=== PATIENT | female | born 1990 | race Caucasian/White ===

== ENCOUNTER → 2019-04-11 | Outpatient (CLI) | payer OTHER, MEDICAID ==
[~2019-04-11] MED LIST: ANUS2.5C2 EXT; DOCU5LIQ PO; IBUP600T26 PO; IBUP80TA PO; MAPA500T17 PO; MAPA500T2 PO; MILK10SU PO; PRENTAB9 PO
--- NOTE | 2019-04-11 11:12 | REP ---
OB ULTRASOUND: Real-time sonographic evaluation of the gravid uterus is performed. There is a single living intrauterine gestation. Estimated gestational age 16 weeks 4 days based on LMP, EDC 09/22/2019. Today's measurements indicate appropriate growth. BPD 33 mm = 16 weeks 3 days, 41st percentile HC 126 mm = 16 weeks 2 days 40th percentile AC 106 mm = 16 weeks 3 days, 47th percentile FL 21 mm = 16 weeks 2 days, 30th percentile HC/AC ratio 1.19 within normal range. Estimated weight 154 grams, 35th percentile. Cervix is closed and measures 4.2 cm in length. heart rate 150 beats per minute. SEEN/GROSSLY UNREMARKABLE Lateral ventricles Yes Posterior fossa No Upper lip No Four-chamber heart Yes LVOT No RVOT Yes Stomach Yes Cord insertion Yes Three vessel cord Yes Kidneys Yes Bladder Yes Spine No position: Vertex. Placenta: Anterior and grade 0 with no previa or abruption. Amniotic fluid within normal limits. Recommend followup anatomical screening ultrasound examination at 20 weeks gestational age. Electronically Signed by Issa Carr MD 04/13/2019 10:44 P
== END ==
LOC: M RAD 08:36
PROVIDERS: ATTEND Advanced Practice Midwife
DX: Z36.9 Encounter for antenatal screening, unspecified (principal); Z3A.16 16 weeks gestation of pregnancy

== ENCOUNTER → 2019-04-25 | Outpatient (CLI) | payer OTHER, MEDICAID ==
[2019-04-25 17:09] LABS: BASO % 0.4 % (0.0-1.0); EOS # 0.1 10^3/uL (0.0-0.5); EOS % 1.2 % (0.0-3.0); HEMATOCRIT 34.5 % (36.0-47.0); HEMOGLOBIN 11.6 g/dl (12.0-15.5); LYMPH # 2.3 10^3/uL (1.5-5.0); LYMPH % 20.1 % (24.0-44.0); MEAN CORPUSCULAR HEMOGLOBIN 31.3 pg (27.0-33.0); MEAN CORPUSCULAR HGB CONC 33.6 g/dl (32.0-36.5); MONO # 0.4 10^3/uL (0.0-0.8); MONO % 3.7 % (0.0-5.0); NEUTROPHILS # 8.3 10^3/uL (1.5-8.5); NEUTROPHILS % 73.5 % (36.0-66.0); PLATELET COUNT, AUTOMATED 223 10^3/uL (150-450); RED BLOOD COUNT 3.71 10^6/uL (4.00-5.40); WHITE BLOOD COUNT 11.3 10^3/uL (4.0-10.0)
[2019-04-25 17:55] LABS: HEPATITIS C VIRUS ABY INDEX 0.1 INDEX (<0.8); HIV 1&2 SCREEN CENTAUR NEGATIVE (NEGATIVE); RUBELLA IgG QUALITATIVE IMMUNE (IMMUNE)
[2019-04-25 18:10] LABS: CHLAMYDIA DNA AMPLIFICATION NEGATIVE (NEGATIVE); GC DNA AMPLIFICATION NEGATIVE (NEGATIVE)
== END ==
LOC: M WUC 13:58
PROVIDERS: ATTEND Advanced Practice Midwife
DX: Z34.81 Encounter for supervision of other normal pregnancy, first trimester (principal); Z36.89 Encounter for other specified antenatal screening

== ENCOUNTER → 2019-05-15 | Outpatient (CLI) | payer MEDICAID, OTHER ==
--- NOTE | 2019-05-15 14:27 | REP ---
Section ultrasound for anatomy: There is a single intrauterine gestation. position is variable. The heart rate is 153 beats per minute. The placenta is anterior. There is no placenta previa or abruptio. The placenta is grade zero. Subjectively the amniotic fluid volume is normal. The cervix measures 5.4 cm length. Gestational age by the ultrasound today is 21 weeks 1 day/ZACKERY 09/24/2019. Gestational age by the first ultrasound is 21 weeks 2 days/ZACKERY 09/23/2019. Gestational age by LMP is 21 weeks 3 days/ZACKERY 09/22/2019. weight is 417 grams/0 pounds, 14 ounces. This is the 44th percentile for 21 weeks 3 days. The following anatomic structures are identified and are unremarkable: Cranium, choroid plexus, cavum septum pellucidum, cerebellum, facial profile, upper lip, lungs, four-chamber heart, cardiac right and left ventricular outflow tracts, diaphragm, stomach, cord insertion, three-vessel cord, kidneys, bladder, spine and upper lower extremities. No anomalies are identified. Electronically Signed by Issa Junior MD 05/15/2019 02:18 P
== END ==
LOC: M RAD 08:46
PROVIDERS: ATTEND Advanced Practice Midwife
DX: Z34.82 Encounter for supervision of other normal pregnancy, second trimester (principal); Z36.89 Encounter for other specified antenatal screening; Z3A.21 21 weeks gestation of pregnancy

== ENCOUNTER → 2019-06-25 | Outpatient (CLI) | payer OTHER ==
[2019-06-25 11:17] LABS: HEMATOCRIT 33.5 % (36.0-47.0); HEMOGLOBIN 10.9 g/dl (12.0-15.5); MEAN CORPUSCULAR HEMOGLOBIN 30.4 pg (27.0-33.0); MEAN CORPUSCULAR HGB CONC 32.5 g/dl (32.0-36.5); MEAN CORPUSCULAR VOLUME 93.3 fl (80.0-96.0); PLATELET COUNT, AUTOMATED 217 10^3/uL (150-450); RED BLOOD COUNT 3.59 10^6/uL (4.00-5.40); WHITE BLOOD COUNT 12.4 10^3/uL (4.0-10.0)
== END ==
LOC: M LAB 08:53
PROVIDERS: ATTEND Advanced Practice Midwife
DX: O26.892 Other specified pregnancy related conditions, second trimester (principal)

== ENCOUNTER → 2019-07-11 | Outpatient (CLI) | payer OTHER | LOC: M LAB 08:04 | PROVIDERS: ATTEND Advanced Practice Midwife | DX: R73.01 Impaired fasting glucose (principal) ==

== ENCOUNTER → 2019-08-15 | Outpatient (CLI) | payer OTHER ==
--- NOTE | 2019-08-15 10:30 | REP ---
Clinical: Anatomical evaluation. Comparison: 05/15/2019 . Findings: Examination demonstrates a single live intrauterine in cephalic presentation. motion is identified by technologist. Placenta is noted anterior and grade I without evidence for placenta previa or abruption. Amniotic fluid volume is normal. Cervix measures 3.6 cm in length and appears closed. No evidence for nuchal cord. Gestational age by LMP 34 weeks 4 days with ZACKERY 09/22/2019 . Gestational age by current measurements 35 weeks 3 days with ZACKERY 09/16/2019 . FHR equals 143 beats per minute. BPD 9.0 cm 36 weeks 2 days HC 31.5 cm 35 weeks 2 days AC 30.8 cm 34 weeks 5 days FL 6.8 cm 35 weeks 0 days HL 6.2 cm 35 weeks 4 days HC/AC ratio 1.02 Estimated weight 2570 grams ( 55th percentile). Amniotic fluid index: 11.9 cm Umbilical cord SD ratio: 2.23 Anatomical assessment is incomplete, but there is suggestions for fluid-filled bowel. Impression: 1. Single live intrauterine in cephalic presentation demonstrating appropriate interval growth. 2. Normal amniotic fluid volume and umbilical cord SD ratio. 3. Suggestions for fluid-filled loops of bowel which is nonspecific. Electronically Signed by Corey Edmond MD 08/15/2019 10:21 A
== END ==
LOC: M RAD 09:40
PROVIDERS: ATTEND Advanced Practice Midwife
DX: O24.019 Pre-existing type 1 diabetes mellitus, in pregnancy, unspecified trimester (principal)

== ENCOUNTER → 2019-08-22 | Outpatient (REF) | payer OTHER | LOC: M SFHCWAGY 16:43 | PROVIDERS: ATTEND Advanced Practice Midwife | DX: Z34.93 Encounter for supervision of normal pregnancy, unspecified, third trimester (principal) ==

== ENCOUNTER → 2019-09-05 | Outpatient (CLI) | payer OTHER ==
--- NOTE | 2019-09-05 15:46 | REP ---
Obstetric sonography: History: Supervision of , for growth. Comparison study August 15, 2019. Findings: Scanning through the gravid uterus demonstrates a viable single intrauterine gestation in a cephalic lie. motion is observed and heart rate is recorded at 153 beats per minute. An anterior grade 3 placenta is seen without evidence of previa or abruption. Amniotic fluid is subjectively normal. No extrauterine abnormalities observed. There has been appropriate growth. Umbilical cord is seen draping over the neck. The following anatomic structures are again identified and felt to be unremarkable: cranium, choroid plexus, cavum, cerebellum and posterior fossa, diaphragm, left-sided stomach, abdominal wall cord insertion, three-vessel umbilical cord, kidneys and bladder, spine. Biometry chart: BPD 9.5 cm = 38 weeks 5 days HC 33.4 cm = 38 weeks 1 day AC 35.1 cm = 39 weeks 0 days FL 7.4 cm = 37 weeks 5 days HL 6.5 cm = 37 weeks 5 days HC/AC ratio normal 0.95. Cephalic index normal 0.81. Estimated weight 3531 grams/7 pounds 12 ounces/73rd percentile for 37 weeks 4 days ALISSA normal 8.8 cm. S/D ratio normal 2.26. Impression: Viable single intrauterine gestation at 38 weeks 2 days by today's composite sonographic criteria. Expected gestational age estimate based on prior sonography is 37 weeks 3 days. ZACKERY by prior sonography September 23, 2019. There has been appropriate interval growth. Electronically Signed by Chay Barnes MD 09/05/2019 08:49 P
== END ==
LOC: M RAD 09:40
PROVIDERS: ATTEND Advanced Practice Midwife
DX: O24.419 Gestational diabetes mellitus in pregnancy, unspecified control (principal)

== ENCOUNTER → 2019-09-17 | Outpatient (CLI) | payer OTHER ==
--- NOTE | 2019-09-17 13:42 | REP ---
OB ULTRASOUND, BIOPHYSICAL PROFILE: Real-time sonographic evaluation of gravid uterus performed. There is a single living intrauterine gestation. The estimated gestational age is reportedly 39 weeks 2 days, EDC 09/22/2019. heart rate is 112 beats per minute. Biophysical profile score 8/8. S/D ratio 2.30 within normal range of 1.6 to 2.6. RI 0.57. position is vertex. Placenta is anterior and grade 2 with no previa or abruption. Amniotic fluid appears within normal limits.
== END ==
LOC: M WHC 11:42
PROVIDERS: ATTEND Advanced Practice Midwife
DX: O24.419 Gestational diabetes mellitus in pregnancy, unspecified control (principal); Z3A.00 Weeks of gestation of pregnancy not specified

== ENCOUNTER 2019-09-19 00:30 | Inpatient (IN) | payer OTHER ==
[~2019-09-19] VITALS: Ht 162.6 cm; Wt 88.3 kg
[2019-09-19 02:48] LABS: HEMOGLOBIN 10.6 g/dl (12.0-15.5); MEAN CORPUSCULAR HEMOGLOBIN 26.8 pg (27.0-33.0); MEAN CORPUSCULAR HGB CONC 32.1 g/dl (32.0-36.5); MEAN CORPUSCULAR VOLUME 83.3 fl (80.0-96.0); PLATELET COUNT, AUTOMATED 239 10^3/uL (150-450); RED BLOOD COUNT 3.96 10^6/uL (4.00-5.40); WHITE BLOOD COUNT 9.8 10^3/uL (4.0-10.0)
[2019-09-19] MEDS ORDERED: LR 1,000 ML IV SCH (03:00)
[2019-09-19 03:11] LABS: ALBUMIN 2.3 GM/DL (3.2-5.2); ALT/SGPT 12 U/L (12-78); BILIRUBIN,TOTAL < 0.1 MG/DL (0.2-1.0); BLOOD UREA NITROGEN 12 MG/DL (7-18); CALCIUM LEVEL 8.5 MG/DL (8.5-10.1); CARBON DIOXIDE LEVEL 22 MEQ/L (21-32); CHLORIDE LEVEL 112 MEQ/L (98-107); CREATININE FOR GFR 0.53 MG/DL (0.55-1.30); GLOMERULAR FILTRATION RATE > 60.0 (>60); GLUCOSE, FASTING 80 MG/DL (70-100); POTASSIUM SERUM 4.4 MEQ/L (3.5-5.1); SODIUM LEVEL 142 MEQ/L (136-145); TOTAL PROTEIN 5.9 GM/DL (6.4-8.2)
[2019-09-19] MEDS ORDERED: FENTANYL 2MCG/ML ROPIVACAINE 0.2% IN 0.9% NACL 100ML IVBAG As Ordered ONE (03:31)
[2019-09-19] MEDS ORDERED: LACTATED RINGER'S 1000 ML IV PRN (03:40)
[2019-09-19] MEDS ORDERED: EPIDURAL/PCA KEYS XX PRN (03:40)
[2019-09-19] MEDS ORDERED: FENTANYL/ROPIVACAINE/NACL BAG 100 ML EPIDURAL SCH (03:40)
[2019-09-19] MEDS ORDERED: ePHEDrine SULFATE 25 MG/5 ML(5MG/ML) SYRINGE IV PRN (03:40)
[2019-09-19] MEDS ORDERED: ONDANSETRON 4MG/2ML VIAL (J2405) IV PRN (03:40)
[2019-09-19] MEDS ORDERED: EPIDURAL COMMENT XX SCH (03:40)
[2019-09-19] MEDS ORDERED: diphenhydrAMINE INJ 50MG/ML VIAL (J1200) IV PRN (03:40)
[2019-09-19] MEDS ORDERED: NALOXONE INJ 0.4 MG/1 ML VIAL (J2310) IV PRN (03:40)
[2019-09-19] MEDS ORDERED: REFRIGERATOR IV KEYS XX PRN (03:40)
[2019-09-19] MEDS ORDERED: OXYTOCIN 30 UNITS IN 0.9% NaCl 500ML IV BAG (J2590) As Ordered ONE (04:38)
[2019-09-19 05:54] LABS: CORD GAS ABE V -3.3; CORD GAS HCO3 V 22.3 MEQ/L; CORD GAS PCO2 V 41.9 mmHg; CORD GAS PH V 7.344 UNITS; CORD GAS PO2 V 26.3 mmHg; CORD GAS SBC V 20.9 MEQ/L; CORD GAS TCO2 V 23.6 MEQ/L
[2019-09-19 05:55] LABS: CORD GAS ABE A -2.9; CORD GAS HCO3 A 25.2 MEQ/L; CORD GAS O2 SAT A 24.2 %; CORD GAS PCO2 A 57.4 mmHg; CORD GAS PO2 A < 10.0 mmHg; CORD GAS SBC A 20.4 MEQ/L; CORD GAS TCO2 A 26.9 MEQ/L
[2019-09-19] MEDS ORDERED: DOCUSATE SODIUM 100 MG CAP PO PRN (06:00)
[2019-09-19] MEDS ORDERED: ACETAMINOPHEN TAB 650MG DOSE (2X325MG) PO PRN (06:00)
[2019-09-19] MEDS ORDERED: DIBUCAINE 1% OINTMENT 30GM TOP PRN (06:00)
[2019-09-19] MEDS ORDERED: METHYLERGONOVINE MALEATE 0.2 MG TAB PO PRN (06:00)
[2019-09-19] MEDS ORDERED: OXYTOCIN DRIP 30 UNITS in IV 1 EA IV SCH (06:00)
[2019-09-19] MEDS ORDERED: RHOGAM 300 MCG (1500 IU) INJ (J2790) IM SCH (06:00)
[2019-09-19] MEDS ORDERED: MEASLES,MUMPS,RUBELLA VACCINE INJ (MMR-II) (90707) SC SCH (06:00)
[2019-09-19] MEDS ORDERED: IBUPROFEN 600 MG TAB PO PRN (06:00)
--- NOTE | 2019-09-19 08:30 | HPE ---
DATE OF ADMISSION: 09/19/2019 Brandi is a 28-year-old female 5, para 3-0-1-3 with an estimated date of confinement (EDC) of 09/22/2019, EGA 39+ weeks gestation who presented to labor and delivery with complaints of contractions every 4-5 minutes. Upon evaluation, she was found to be 3-4 cm dilated, 80% effaced, fetus at -3 station in vertex position. At this point, a decision was made to admit the patient. She did receive care at [facility]. She is a gestational diabetic on glyburide. Sugars are well-controlled. She was originally scheduled for an induction next week. Her record reviewed, other than gestational diabetes essentially unremarkable. LABORATORIES: Blood type is A+, rubella immune, hepatitis negative, HIV negative, GC and chlamydia negative, 1-hour sugar testing was abnormal and Group B streptococcus (GBS) is negative. PAST MEDICAL HISTORY: Significant for gestational diabetes. PAST SURGICAL HISTORY: Denies. SOCIAL HISTORY: Denies any alcohol or drug use. The patient is a cigarette smoker, smokes approximately 10 cigarettes per day REVIEW OF SYSTEMS: Unremarkable. FAMILY HISTORY: Significant for diabetes and high blood pressure. MEDICATIONS: vitamin and glyburide. ALLERGIES: NO KNOWN DRUG ALLERGIES. PHYSICAL EXAMINATION Normal-appearing female in no acute distress. Abdomen: Soft, nontender, nondistended. Extremities: No clubbing, cyanosis or edema. Vaginal exam: 3-4 cm dilated, 80% effaced, fetus in -3 station. Exam done by RN Tracing reviewed, category one tracing. LABORATORIES: Reviewed, essentially within normal limits. ASSESSMENT: 1. Intrauterine at 39+ weeks gestation in labor. 2. Gestational diabetes on glyburide. PLAN: Admit the patient to labor and delivery. Routine labs sent. Pain management discussed. The patient opts for an epidural. We will continue to monitor. Anticipate delivery.
[2019-09-19 10:40] VITALS: BP 140/75
[2019-09-19] MEDS: PRENATAL VITAMINS CHEWABLE TABLET PO SCH (10:44)
[2019-09-19] MEDS: ACETAMINOPHEN 500 MG TAB PO PRN ×2 (10:45→17:24)
[2019-09-19] MEDS: IBUPROFEN 800 MG TAB PO PRN ×2 (12:09→20:07)
--- NOTE | 2019-09-19 16:48 | DN ---
DATE: 09/19/2019 Brandi is a 28-year-old female 5, para 3-0-1-3 who was admitted at 39+ weeks gestation with a history of gestational diabetes, on glyburide. She progressed to fully dilated and pushed and delivered a live female in left occiput anterior position with a nuchal cord times one over an intact perineum. scores 8 and 9. weight 9 pounds 5 ounces. Placenta delivered spontaneously intact. Three-vessel cord. Estimated blood loss 300 mL. Perineum, vagina and cervix inspected. No laceration noted. Both mother and baby in stable condition.
[2019-09-19 18:00] VITALS: BP 143/82
[2019-09-20 05:34] VITALS: BP 118/61
[2019-09-20] MEDS: IBUPROFEN 800 MG TAB PO PRN (06:02)
[2019-09-20] MEDS: ACETAMINOPHEN 500 MG TAB PO PRN (09:24)
[2019-09-20] MEDS: PRENATAL VITAMINS CHEWABLE TABLET PO SCH (09:24)
== END 2019-09-20 13:35 | disposition home or self-care (01) | DRG 560 ==
LOC: M LDO 00:30 → M LDI 01:56 → M OBS 10:41
PROVIDERS: ADMIT Obstetrics & Gynecology; ATTEND Obstetrics & Gynecology
PROC: 10E0XZZ Delivery of Products of Conception, External Approach (ICD-10-PCS; principal; 2019-09-19)
DX: O24.425 Gestational diabetes mellitus in childbirth, controlled by oral hypoglycemic drugs (principal); F17.210 Nicotine dependence, cigarettes, uncomplicated; O99.334 Smoking (tobacco) complicating childbirth; Z3A.39 39 weeks gestation of pregnancy; O69.81X0 Labor and delivery complicated by cord around neck, without compression, not applicable or unspecified; Z37.0 Single live birth

== ENCOUNTER → 2019-12-10 | Outpatient (REF) | payer OTHER | LOC: M LAB REF 15:54 | PROVIDERS: ATTEND Nurse Practitioner Family | DX: N39.0 Urinary tract infection, site not specified (principal) ==

== ENCOUNTER 2021-06-30 17:34 | Emergency (ER) | payer OTHER ==
[~2021-06-30] VITALS: Ht 162.6 cm; Wt 75.7 kg
--- OUTSIDE RECORDS SUMMARY | 2021-06-30 17:41 | CCD ---
Author Author [facility] Organization [facility] Address Unknown Phone Unavailable Support Name Relationship Address Phone ANGELO Next Of Kin [address] [place] [address] MADONNA BASHIR Next Of Kin [address] [place] [address] [place] B[place] [address] JOSHKINVIKRAM Next Of Kin [address] [place] [address] RAINER BASHIR Next Of Kin [address] [place] [address] MADONNA BASHIR [address] [place] [address] Unavailable Re-disclosure Warning The records that you are about to access may contain information from federally-assisted alcohol or drug abuse programs. If such information is present, then the following federally mandated warning applies: This information has been disclosed to you from records protected by federal confidentiality rules (42 CFR part 2). The federal rules prohibit you from making any further disclosure of this information unless further disclosure is expressly permitted by the written consent of the person to whom it pertains or as otherwise permitted by 42 CFR part 2. A general authorization for the release of medical or other information is NOT sufficient for this purpose. The Federal rules restrict any use of the information to criminally investigate or prosecute any alcohol or drug abuse patient.The records that you are about to access may contain highly sensitive health information, the redisclosure of which is protected by Article 27-F of the [facility] Public Health law. If you continue you may have access to information: Regarding HIV / AIDS; Provided by facilities licensed or operated by the [facility] Office of Mental Health; or Provided by the [facility] Office for People With Developmental Disabilities. If such information is present, then the following [facility] mandated warning applies: This information has been disclosed to you from confidential records which are protected by state law. State law prohibits you from making any further disclosure of this information without the specific written consent of the person to whom it pertains, or as otherwise permitted by law. Any unauthorized further disclosure in violation of state law may result in a fine or group home sentence or both. A general authorization for the release of medical or other information is NOT sufficient authorization for further disc losure. Medications Medication Brand Name Start Date Product Form Dose Route Admi nistrative Instructions Pharmacy Instructions Status Indications Reaction Description Data Source(s) Isibloom 28 Day Pack 0.15-0.03 mg DESOGESTREL-ETHINYL ESTRAD IOL 06/16/2020 12:00:00 AM EDT tablet 28 TAKE ONE TABLET BY MOUTH EVERY DAY TAKE ONE TABLET BY MOUTH EVERY DAY SOLD: 07/02/2020 [facility] Insurance Providers Payer name Policy type / Coverage type Policy ID Covered constitution party ID Covered constitution party's relationship to sheth Policy Sheth Plan Information [id number] [id number] [facility] [id number] SP [id number] [facility] [id number] SP [id number] MEDICAID M [id number] S [id number] MEDICAID [id number] SP [id number] [facility] O [id number] S [id number] [facility] PLAN [id number] SP [id number] SELF PAY SP UNAVAILABLE S UNAVAILA BLE MEDICAID [id number] SP [id number] [facility] [id number] SP [id number] [facility] O [id number] S [id number] Problems, Conditions, and Diagnoses No Information Surgeries/Procedures No Information Results No Information Social History No Information
[2021-06-30 19:07] LABS: BASO # 0.1 10^3/uL (0.0-0.2); BASO % 0.6 % (0.0-1.0); EOS # 0.1 10^3/uL (0.0-0.5); EOS % 1.4 % (0.0-3.0); HEMATOCRIT 37.2 % (36.0-47.0); HEMOGLOBIN 12.4 g/dl (12.0-15.5); LYMPH # 1.7 10^3/uL (1.5-5.0); LYMPH % 19.7 % (24.0-44.0); MEAN CORPUSCULAR HEMOGLOBIN 31.6 pg (27.0-33.0); MEAN CORPUSCULAR HGB CONC 33.3 g/dl (32.0-36.5); MEAN CORPUSCULAR VOLUME 94.7 fl (80.0-96.0); MONO # 0.5 10^3/uL (0.0-0.8); NEUTROPHILS # 6.1 10^3/uL (1.5-8.5); NEUTROPHILS % 71.8 % (36.0-66.0); PLATELET COUNT, AUTOMATED 234 10^3/uL (150-450); RED BLOOD COUNT 3.93 10^6/uL (4.00-5.40); WHITE BLOOD COUNT 8.5 10^3/uL (4.0-10.0)
[2021-06-30 19:47] LABS: BLOOD UREA NITROGEN 7 MG/DL (7-18); CALCIUM LEVEL 9.1 MG/DL (8.5-10.1); CARBON DIOXIDE LEVEL 26 MEQ/L (21-32); CHLORIDE LEVEL 106 MEQ/L (98-107); CREATININE FOR GFR 0.75 MG/DL (0.55-1.30); GLOMERULAR FILTRATION RATE > 60.0 (>60); GLUCOSE, FASTING 149 MG/DL (70-100); HCG, SERUM QUANTITATIVE 5084 MIU/ML; POTASSIUM SERUM 3.6 MEQ/L (3.5-5.1); SODIUM LEVEL 139 MEQ/L (136-145)
--- OUTSIDE RECORDS SUMMARY | 2021-06-30 20:39 | CCD ---
Author Author [facility] Organization [facility] Address Unknown Phone Unavailable Support Name Relationship Address Phone ANGELO Next Of Kin [address] [place] [address] MADONNA BASHIR Next Of Kin [address] [place] [address] [place] [address] JOSHKINVIKRAM Next Of Kin [address] [place] [address] RAINER BASHIR Next Of Kin [address] [place] [address] MADONNA BASHIR [address] [place] [address] Unavailable Re-disclosure Warning The records that you [...] is protected by Article 27-F of the [facility] Public Health law. If you continue you may have access to information: Regarding HIV / AIDS; Provided by facilities licensed or operated by the [facility] Office of Mental Health; or Provided by the [facility] Office for People With Developmental Disabilities. If such information is present, then the following [facility] mandated warning applies: This information has been [...] law may result in a fine or senior living sentence or both. A general authorization for [...] type / Coverage type Policy ID Covered republican ID Covered republican's relationship to sheth Policy Sheth Plan Information [facility] [id number] SP [id number] [facility] COMMUN[facility] PLAN [facility] [place] [place] [id number] SP [id number] [facility] COMM[facility] PLAN [facility] [place] [place] [id number] SP [id number] MEDICAID M [id number] S [id number] MEDICAID [id number] SP [id number] [facility] O [id number] S [id number] [facility] PLAN [id number] SP [id number] SELF PAY SP UNAVAILABLE S UNAVAILA BLE MEDICAID [id number] SP [id number] [facility] COMMUNITY PLAN [facility] [place] [place] [id number] SP [id number] [facility] O [id number] S [id number] Problems, Conditions, and Diagnoses No Information Surgeries/Procedures No Information Results No Information Social History No Information
[2021-06-30 20:42] LABS: RSV AMPLIFICATION NEGATIVE (NEGATIVE)
--- NOTE | 2021-06-30 21:12 | REPVR ---
PROCEDURE INFORMATION: Exam: US First Trimester, Transabdominal and US , Transvaginal Exam date and time: 06/30/2021 8:29 PM Age: 30 years old Clinical indication: Pain; Other: Vag bleeding; Gestational age or lmp: 9wks; ; Additional info: Vaginal bleeding TECHNIQUE: Imaging protocol: Real-time transabdominal obstetrical ultrasound of the maternal pelvis and a first trimester , less than 14 weeks 0 days, with image documentation. Transvaginal imaging was used for better evaluation of the fetus, adnexa, and/or cervix. COMPARISON: No relevant prior studies available. FINDINGS: Gestation: Single gestational sac demonstrated within the uterus. Single pole within the gestational sac measures 7.2 mm. Embryonic/ heart rate: No heart rate detected. Extra-embryonic membranes/Placenta: Unremarkable. No subchorionic bleed. Amniotic fluid: Amniotic fluid/chorionic fluid is normal for gestational age. BIOMETRY: Gestational age (AUA): Gestational age based on crown-rump length is 6 weeks 5 days versus 9 weeks using LMP of 04/21/2021. MATERNAL: Uterus: Uterus measures 7.4 x 5.1 x 7.5 cm. Cervix: Unremarkable. Right adnexa: Corpus luteal cyst right ovary demonstrated. Left adnexa: Unremarkable. Intraperitoneal space: No intraperitoneal free fluid. IMPRESSION: Single pole demonstrated within the gestational sac consistent with a gestational 6 weeks 5 days in this patient who is 9 weeks based on LMP of 04/21/2021. Absence of cardiac activity worrisome for early loss. Correlation with beta HCG levels and follow-up ultrasound suggested as clinically directed. Electronically signed by: Ke Maldonado On 06/30/2021 21:11:56 PM
[2021-06-30 21:30] VITALS: BP 156/86
== END 2021-06-30 21:34 | disposition home or self-care (01) ==
LOC: M ED 17:34
DX: O20.0 Threatened abortion (principal); O99.511 Diseases of the respiratory system complicating pregnancy, first trimester; Z3A.01 Less than 8 weeks gestation of pregnancy; O99.331 Smoking (tobacco) complicating pregnancy, first trimester; Z79.899 Other long term (current) drug therapy; Z88.5 Allergy status to narcotic agent

== ENCOUNTER → 2021-07-02 | Outpatient (CLI) | payer OTHER | LOC: M LAB 13:07 | PROVIDERS: ATTEND Physician Assistant | DX: O20.0 Threatened abortion (principal) ==

== ENCOUNTER → 2022-02-14 | Outpatient (REF) | payer OTHER | LOC: M PLALAB 07:45 | PROVIDERS: ATTEND Advanced Practice Midwife | DX: Z34.91 Encounter for supervision of normal pregnancy, unspecified, first trimester (principal); Z53.9 Procedure and treatment not carried out, unspecified reason ==

== ENCOUNTER → 2022-02-15 | Outpatient (CLI) | payer OTHER | LOC: M WHC 11:57 | PROVIDERS: ATTEND Advanced Practice Midwife | DX: Z34.93 Encounter for supervision of normal pregnancy, unspecified, third trimester (principal); Z3A.31 31 weeks gestation of pregnancy ==

== ENCOUNTER → 2022-03-07 | Outpatient (CLI) | payer OTHER ==
[2022-03-07 13:47] LABS: HEMOGLOBIN 10.4 g/dl (12.0-15.5); MEAN CORPUSCULAR HEMOGLOBIN 30.1 pg (27.0-33.0); MEAN CORPUSCULAR HGB CONC 32.5 g/dl (32.0-36.5); MEAN CORPUSCULAR VOLUME 92.5 fl (80.0-96.0); PLATELET COUNT, AUTOMATED 185 10^3/uL (150-450); RED BLOOD COUNT 3.46 10^6/uL (4.00-5.40); WHITE BLOOD COUNT 12.7 10^3/uL (4.0-10.0)
[2022-03-07 14:18] LABS: GLUCOSE CHALLENGE TEST 1 HOUR 171 MG/DL (LESS THAN 140)
[2022-03-07 14:49] LABS: HEMOGLOBIN A1c 5.3 %
[2022-03-07 15:04] LABS: HEPATITIS C VIRUS ABY INDEX 0.1 INDEX (<0.8)
[2022-03-07 15:05] LABS: HIV 1&2 SCREEN CENTAUR NEGATIVE (NEGATIVE)
[2022-03-07 15:35] LABS: GC DNA AMPLIFICATION NEGATIVE (NEGATIVE)
== END ==
LOC: M LAB 11:46
PROVIDERS: ATTEND Advanced Practice Midwife
DX: Z34.93 Encounter for supervision of normal pregnancy, unspecified, third trimester (principal)

== ENCOUNTER → 2022-03-17 | Outpatient (CLI) | payer OTHER | LOC: M LAB 07:42 | PROVIDERS: ATTEND Advanced Practice Midwife | DX: O99.810 Abnormal glucose complicating pregnancy (principal); Z3A.00 Weeks of gestation of pregnancy not specified ==

== ENCOUNTER → 2022-03-24 | Outpatient (REF) | payer OTHER | LOC: M SFHCWAGY 10:29 | PROVIDERS: ATTEND Specialist | DX: O24.415 Gestational diabetes mellitus in pregnancy, controlled by oral hypoglycemic drugs (principal) ==

== ENCOUNTER 2022-04-11 18:08 | Outpatient (CLI) | payer OTHER ==
[~2022-04-11] VITALS: Ht 162.6 cm; Wt 86.6 kg
[2022-04-11] MEDS ORDERED: TUMS500C PO (18:36)
[2022-04-11 18:38] VITALS: BP 133/76
[2022-04-11] MEDS ORDERED: HOME MED LIST COMPLETE! XX SCH (18:40)
[2022-04-11 19:06] VITALS: BP 129/67
[2022-04-11 20:10] LABS: HEMATOCRIT 31.9 % (36.0-47.0); HEMOGLOBIN 10.9 g/dl (12.0-15.5); MEAN CORPUSCULAR HEMOGLOBIN 30.4 pg (27.0-33.0); MEAN CORPUSCULAR HGB CONC 34.2 g/dl (32.0-36.5); MEAN CORPUSCULAR VOLUME 89.1 fl (80.0-96.0); PLATELET COUNT, AUTOMATED 170 10^3/uL (150-450); RED BLOOD COUNT 3.58 10^6/uL (4.00-5.40); WHITE BLOOD COUNT 12.2 10^3/uL (4.0-10.0)
[2022-04-11 20:16] LABS: TOTAL PROTEIN,RANDOM URINE 31.3 MG/DL (0.0-12.0)
[2022-04-11 20:32] LABS: ALBUMIN 2.4 GM/DL (3.2-5.2); ALT/SGPT 13 U/L (12-78); BILIRUBIN,TOTAL 0.1 MG/DL (0.2-1.0); BLOOD UREA NITROGEN 10 MG/DL (7-18); CALCIUM LEVEL 9.4 MG/DL (8.5-10.1); CARBON DIOXIDE LEVEL 23 MEQ/L (21-32); CHLORIDE LEVEL 109 MEQ/L (98-107); CREATININE FOR GFR 0.63 MG/DL (0.55-1.30); GLOMERULAR FILTRATION RATE > 60.0 (>60); GLUCOSE, FASTING 130 MG/DL (70-100); POTASSIUM SERUM 3.5 MEQ/L (3.5-5.1); SODIUM LEVEL 139 MEQ/L (136-145); TOTAL PROTEIN 5.9 GM/DL (6.4-8.2)
[2022-04-11 20:43] VITALS: BP 123/67
== END 2022-04-11 21:00 | disposition home or self-care (01) ==
LOC: M LDO 18:08
PROVIDERS: ATTEND Obstetrics & Gynecology
DX: O16.3 Unspecified maternal hypertension, third trimester (principal); O60.03 Preterm labor without delivery, third trimester; Z3A.39 39 weeks gestation of pregnancy

== ENCOUNTER 2022-04-21 18:16 | Inpatient (IN) | payer OTHER ==
[2022-04-21] VITALS (14 sets, daily range): BP systolic 130–183; BP diastolic 76–125
[~2022-04-21] VITALS: Ht 162.6 cm; Wt 86.2 kg
[~2022-04-21 18:16] MED LIST changes: +TUMS500C PO
[2022-04-21] MEDS ORDERED: HOME MED LIST COMPLETE! XX SCH (18:40)
[2022-04-21] MEDS ORDERED: NIFEdipine 10 MG CAP PO STA (18:53)
[2022-04-21] MEDS ORDERED: OXYTOCIN DRIP 30 UNITS in IV 1 EA IV PRN ×4 (19:00)
[2022-04-21] MEDS ORDERED: CARBOPROST TROMETHAMINE 250 MCG/ML AMP IM PRN (19:00)
[2022-04-21] MEDS ORDERED: OXYTOCIN DRIP 30 UNITS in IV 1 EA IV SCH (19:00)
[2022-04-21] MEDS ORDERED: TRANEXAMIC ACID INJection 1,000 MG in NS 100 ML IV PRN (19:00)
[2022-04-21] MEDS ORDERED: LACTATED RINGER'S 1000 ML IV PRN (19:00)
[2022-04-21 19:26] LABS: HEMATOCRIT 34.3 % (36.0-47.0); HEMOGLOBIN 11.6 g/dl (12.0-15.5); MEAN CORPUSCULAR HEMOGLOBIN 30.1 pg (27.0-33.0); MEAN CORPUSCULAR HGB CONC 33.8 g/dl (32.0-36.5); MEAN CORPUSCULAR VOLUME 89.1 fl (80.0-96.0); PLATELET COUNT, AUTOMATED 229 10^3/uL (150-450); RED BLOOD COUNT 3.85 10^6/uL (4.00-5.40); WHITE BLOOD COUNT 9.6 10^3/uL (4.0-10.0)
[2022-04-21 19:53] LABS: ALBUMIN 2.5 GM/DL (3.2-5.2); ALT/SGPT 15 U/L (12-78); BILIRUBIN,TOTAL 0.1 MG/DL (0.2-1.0); BLOOD UREA NITROGEN 11 MG/DL (7-18); CALCIUM LEVEL 9.4 MG/DL (8.5-10.1); CARBON DIOXIDE LEVEL 18 MEQ/L (21-32); CHLORIDE LEVEL 108 MEQ/L (98-107); CREATININE FOR GFR 0.59 MG/DL (0.55-1.30); GLOMERULAR FILTRATION RATE > 60.0 (>60); GLUCOSE, FASTING 130 MG/DL (70-100); POTASSIUM SERUM 4.1 MEQ/L (3.5-5.1); SODIUM LEVEL 137 MEQ/L (136-145); TOTAL PROTEIN 6.3 GM/DL (6.4-8.2)
[2022-04-21] MEDS: NIFEdipine 30 MG XL TAB PO SCH (23:15)
[2022-04-22] VITALS (47 sets, daily range): BP systolic 105–189; BP diastolic 57–97
[2022-04-22] MEDS ORDERED: ePHEDrine SULFATE 25 MG/5 ML(5MG/ML) SYRINGE IVP PRN (01:30)
[2022-04-22] MEDS ORDERED: diphenhydrAMINE 50MG/ML VIAL (J1200) IV PRN (01:30)
[2022-04-22] MEDS ORDERED: ONDANSETRON 4MG 2ML VIAL IV PRN (01:30)
[2022-04-22] MEDS ORDERED: LR 500 ML IV PRN (01:30)
[2022-04-22] MEDS ORDERED: EPIDURAL/PCA KEYS XX PRN (01:30)
[2022-04-22] MEDS ORDERED: NALOXONE INJ 0.4MG/1ML VIAL (J2310 PER 1MG) IV PRN (01:30)
[2022-04-22] MEDS ORDERED: FENTANYL/ROPIVACAINE/NACL BAG 100 ML EPIDURAL SCH (01:30)
[2022-04-22] MEDS: LR 1,000 ML IV SCH ×2 (05:00→12:22)
[2022-04-22] MEDS: NIFEdipine 30 MG XL TAB PO SCH (09:07)
[2022-04-22] MEDS ORDERED: DOCUSATE SODIUM 100MG CAPSULE PO PRN (13:45)
[2022-04-22] MEDS ORDERED: DIBUCAINE 1% OINTMENT 30GM TOP PRN (13:45)
[2022-04-22] MEDS ORDERED: METHYLERGONOVINE MALEATE 0.2 MG TAB PO PRN (13:45)
[2022-04-22] MEDS ORDERED: RHOGAM 300 MCG (1500 IU) INJ (J2790) IM SCH (13:45)
[2022-04-22] MEDS ORDERED: TRANEXAMIC ACID INJection 1,000 MG in NS 100 ML IV PRN (14:50)
[2022-04-22] MEDS: ACETAMINOPHEN 500 MG TAB PO PRN (17:45)
[2022-04-22] MEDS: IBUPROFEN 600MG TAB PO PRN (19:55)
[2022-04-23] MEDS: ACETAMINOPHEN 500 MG TAB PO PRN ×3 (00:15→18:30)
[2022-04-23 05:45] VITALS: BP 134/80
[2022-04-23] MEDS: IBUPROFEN 600MG TAB PO PRN ×3 (06:00→21:46)
[2022-04-23 07:26] LABS: HEMATOCRIT 28.5 % (36.0-47.0); MEAN CORPUSCULAR HEMOGLOBIN 30.5 pg (27.0-33.0); MEAN CORPUSCULAR HGB CONC 33.3 g/dl (32.0-36.5); MEAN CORPUSCULAR VOLUME 91.6 fl (80.0-96.0); PLATELET COUNT, AUTOMATED 174 10^3/uL (150-450); RED BLOOD COUNT 3.11 10^6/uL (4.00-5.40); WHITE BLOOD COUNT 10.2 10^3/uL (4.0-10.0)
[2022-04-23 07:31] LABS: HEMOGLOBIN 9.5 g/dl (12.0-15.5)
[2022-04-23] MEDS: PRENATAL VITAMINS CHEWABLE TABLET PO SCH (09:14)
[2022-04-23 18:05] VITALS: BP 181/86
[2022-04-23 18:50] VITALS: BP 134/92
[2022-04-23 19:42] LABS: HEMATOCRIT 28.6 % (36.0-47.0); HEMOGLOBIN 9.6 g/dl (12.0-15.5); MEAN CORPUSCULAR HEMOGLOBIN 30.6 pg (27.0-33.0); MEAN CORPUSCULAR HGB CONC 33.6 g/dl (32.0-36.5); MEAN CORPUSCULAR VOLUME 91.1 fl (80.0-96.0); PLATELET COUNT, AUTOMATED 189 10^3/uL (150-450); RED BLOOD COUNT 3.14 10^6/uL (4.00-5.40); WHITE BLOOD COUNT 10.6 10^3/uL (4.0-10.0)
[2022-04-23] MEDS: NIFEdipine 30 MG XL TAB PO SCH (19:42)
[2022-04-23 20:13] LABS: ALBUMIN 2.1 GM/DL (3.2-5.2); ALT/SGPT 14 U/L (12-78); BILIRUBIN,TOTAL 0.1 MG/DL (0.2-1.0); BLOOD UREA NITROGEN 9 MG/DL (7-18); CALCIUM LEVEL 8.6 MG/DL (8.5-10.1); CARBON DIOXIDE LEVEL 22 MEQ/L (21-32); CHLORIDE LEVEL 110 MEQ/L (98-107); CREATININE FOR GFR 0.63 MG/DL (0.55-1.30); GLOMERULAR FILTRATION RATE > 60.0 (>60); GLUCOSE, FASTING 107 MG/DL (70-100); POTASSIUM SERUM 3.7 MEQ/L (3.5-5.1); SODIUM LEVEL 138 MEQ/L (136-145); TOTAL PROTEIN 5.7 GM/DL (6.4-8.2)
[2022-04-23 22:35] VITALS: BP 140/60
[2022-04-24 05:28] VITALS: BP 132/62
[2022-04-24] MEDS: ACETAMINOPHEN 500 MG TAB PO PRN (06:00)
[2022-04-24] MEDS: IBUPROFEN 600MG TAB PO PRN (08:54)
[2022-04-24] MEDS: PRENATAL VITAMINS CHEWABLE TABLET PO SCH (08:54)
[2022-04-24 08:55] VITALS: BP 141/73
[2022-04-24] MEDS: NIFEdipine 30 MG XL TAB PO SCH (08:55)
[2022-04-24] MEDS ORDERED: MEASLES,MUMPS,RUBELLA VACCINE INJ (MMR-II) (90707) SC.IMMUN ONE (09:00)
[2022-04-24] MEDS ORDERED: IBUP-1022 PO (09:35)
[2022-04-24] MEDS ORDERED: NIFE1TAB52 PO (09:35)
[2022-04-24] MEDS ORDERED: ACET-683 PO (09:35)
[2022-04-24 10:00] VITALS: BP 138/80
== END 2022-04-24 13:45 | disposition home or self-care (01) | DRG 560 ==
LOC: M LDO 18:16 → M LDI 18:53 → M OBS 04-22 16:55
PROVIDERS: ADMIT Obstetrics & Gynecology; ATTEND Obstetrics & Gynecology
PROC: 3E033VJ Introduction of Other Hormone into Peripheral Vein, Percutaneous Approach (ICD-10-PCS; 2022-04-21)
PROC: 10E0XZZ Delivery of Products of Conception, External Approach (ICD-10-PCS; principal; 2022-04-22)
DX: O14.94 Unspecified pre-eclampsia, complicating childbirth (principal); O24.420 Gestational diabetes mellitus in childbirth, diet controlled; F17.210 Nicotine dependence, cigarettes, uncomplicated; O99.334 Smoking (tobacco) complicating childbirth; Z3A.40 40 weeks gestation of pregnancy; Z37.0 Single live birth

== ENCOUNTER → 2023-10-12 | Outpatient (CLI) | payer OTHER ==
[~2023-10-12] MED LIST changes: +ACET-683 PO; +IBUP-1022 PO; +NIFE1TAB52 PO
[2023-10-12 11:24] LABS: BASO # 0.1 10^3/uL (0.0-0.2); BASO % 0.9 % (0.0-1.0); EOS # 0.2 10^3/uL (0.0-0.5); HEMATOCRIT 39.6 % (36.0-47.0); LYMPH # 2.8 10^3/uL (1.5-5.0); LYMPH % 40.2 % (24.0-44.0); MEAN CORPUSCULAR HEMOGLOBIN 29.7 pg (27.0-33.0); MEAN CORPUSCULAR HGB CONC 32.8 g/dl (32.0-36.5); MEAN CORPUSCULAR VOLUME 90.4 fl (80.0-96.0); MONO # 0.4 10^3/uL (0.0-0.8); MONO % 5.3 % (2.0-8.0); NEUTROPHILS # 3.5 10^3/uL (1.5-8.5); NEUTROPHILS % 50.3 % (36.0-66.0); PLATELET COUNT, AUTOMATED 254 10^3/uL (150-450); RED BLOOD COUNT 4.38 10^6/uL (4.00-5.40); WHITE BLOOD COUNT 6.9 10^3/uL (4.0-10.0)
[2023-10-12 11:56] LABS: ALBUMIN 3.8 G/DL (3.2-5.2); ALKALINE PHOSPHATASE 77 U/L (46-116); ALT/SGPT 26 U/L (7.0-40); AST/SGOT 18 U/L (<34); BILIRUBIN,TOTAL 0.4 MG/DL (0.3-1.2); BLOOD UREA NITROGEN 12 MG/DL (9-23); CARBON DIOXIDE LEVEL 25 MMOL/L (20-31); CHLORIDE LEVEL 110 MMOL/L (98-107); CHOLESTEROL LEVEL 159 MG/DL (<200); CHOLESTEROL RISK RATIO 4.52 (<5); CREATININE FOR GFR 0.64 MG/DL (0.55-1.30); GLOMERULAR FILTRATION RATE > 60.0 (>60); GLUCOSE, FASTING 91 MG/DL (60-100); HDL CHOLESTEROL 35.1 MG/DL (>40); LDL CHOLESTEROL 103.7 MG/DL (<100); NON-HDL-C 123.9 MG/DL; POTASSIUM SERUM 4.2 MMOL/L (3.5-5.1); SODIUM LEVEL 142 MMOL/L (136-145); THYROID STIMULATING HORMONE 2.628 uIU/ML (0.55-4.78); TOTAL 25(OH) VITAMIN D 13.7 NG/ML (20.0-100.0); TOTAL PROTEIN 6.7 G/DL (5.7-8.2); TRIGLYCERIDES LEVEL 101 MG/DL (<150)
== END ==
LOC: M WUC 08:30
PROVIDERS: ATTEND Registered Nurse Psychiatric/Mental Health
DX: F41.9 Anxiety disorder, unspecified (principal); F10.20 Alcohol dependence, uncomplicated; F17.200 Nicotine dependence, unspecified, uncomplicated

== ENCOUNTER 2024-11-01 21:04 | Emergency (ER) | payer OTHER ==
[~2024-11-01] VITALS: Ht 162.6 cm; Wt 73.8 kg
[2024-11-01 21:08] VITALS: TEMP 97.2
[2024-11-01 22:14] LABS: BASO # 0.1 10^3/uL (0.0-0.2); BASO % 0.4 % (0.0-1.0); EOS # 0.1 10^3/uL (0.0-0.5); EOS % 0.6 % (0.0-3.0); HEMATOCRIT 32.3 % (36.0-47.0); HEMOGLOBIN 11.1 g/dl (12.0-15.5); LYMPH # 2.5 10^3/uL (1.5-5.0); LYMPH % 21.2 % (24.0-44.0); MEAN CORPUSCULAR HEMOGLOBIN 31.2 pg (27.0-33.0); MEAN CORPUSCULAR HGB CONC 34.4 g/dl (32.0-36.5); MEAN CORPUSCULAR VOLUME 90.7 fl (80.0-96.0); MONO # 0.5 10^3/uL (0.0-0.8); MONO % 4.4 % (2.0-8.0); NEUTROPHILS # 8.5 10^3/uL (1.5-8.5); NEUTROPHILS % 73.1 % (36.0-66.0); PLATELET COUNT, AUTOMATED 247 10^3/uL (150-450); RED BLOOD COUNT 3.56 10^6/uL (4.00-5.40); WHITE BLOOD COUNT 11.6 10^3/uL (4.0-10.0)
[2024-11-01 22:39] LABS: BLOOD UREA NITROGEN 9 MG/DL (9-23); CALCIUM LEVEL 8.7 MG/DL (8.5-10.1); CARBON DIOXIDE LEVEL 24 MMOL/L (20-31); CHLORIDE LEVEL 105 MMOL/L (98-107); CREATININE FOR GFR 0.55 MG/DL (0.55-1.30); GLOMERULAR FILTRATION RATE > 60.0 (>60); GLUCOSE, FASTING 100 MG/DL (60-100); POTASSIUM SERUM 3.3 MMOL/L (3.5-5.1); SODIUM LEVEL 139 MMOL/L (136-145)
[2024-11-01 22:54] LABS: LIPASE 24 U/L (12-53)
[2024-11-01 22:56] LABS: ALBUMIN 3.5 G/DL (3.2-5.2); ALKALINE PHOSPHATASE 50 U/L (35-104); ALT/SGPT 15 U/L (7.0-40); AST/SGOT 11 U/L (<34); BILIRUBIN,DIRECT 0.2 MG/DL (<0.4); BILIRUBIN,TOTAL 0.4 MG/DL (0.3-1.2); TOTAL PROTEIN 6.5 G/DL (5.7-8.2)
[2024-11-01 22:59] LABS: HCG, SERUM QUANTITATIVE 80903.8 MIU/ML (<4.2)
[2024-11-01] MEDS ORDERED: METR-265 PO (23:18)
[2024-11-01 23:33] LABS: APPEARANCE, URINE CLEAR (CLEAR); BACTERIA, URINE AUTO NEGATIVE (NEGATIVE); BILIRUBIN, URINE AUTO NEGATIVE (NEGATIVE); BLOOD, URINE BLOOD NEGATIVE (NEGATIVE); COLOR, URINE YELLOW (YELLOW); GLUCOSE, URINE (UA) AUTO NEGATIVE (NEGATIVE); KETONE, URINE AUTO NEGATIVE (NEGATIVE); LEUKOCYTE ESTERASE, URINE AUTO NEGATIVE (NEGATIVE); MUCUS, URINE SMALL (NEGATIVE); NITRITE, URINE AUTO NEGATIVE (NEGATIVE); PROTEIN, URINE AUTO NEGATIVE (NEGATIVE); RBC, URINE AUTO 0 /HPF (0-3); SPECIFIC GRAVITY URINE AUTO 1.021 (1.002-1.035); SQUAMOUS EPITHELIAL CELL UR AU 1 /HPF (0-6); UROBILINOGEN, URINE AUTO 0.2 mg/dL (0.0-2.0); WBC, URINE AUTO 0 /HPF (0-3)
[2024-11-01] MEDS: NS (Normal Saline) 0.9% 1,000 ML IV SCH (23:33)
[2024-11-01] MEDS: metroNIDAZOLE (FLAGYL) 500MG TABLET PO ONE (23:44)
[2024-11-01] MEDS: POTASSIUM CHLORIDE 10MEQ SR TABLET PO ONE (23:44)
[2024-11-02 00:56] LABS: GC DNA AMPLIFICATION NEGATIVE (NEGATIVE)
[2024-11-02 02:12] VITALS: BP 157/92; O2SAT 100
== END 2024-11-02 02:18 | disposition home or self-care (01) ==
LOC: M ED 21:04
DX: O23.591 Infection of other part of genital tract in pregnancy, first trimester (principal); Z88.5 Allergy status to narcotic agent; Z79.2 Long term (current) use of antibiotics; Z3A.09 9 weeks gestation of pregnancy

== ENCOUNTER 2025-04-02 13:00 | Emergency (ER) | payer OTHER ==
[~2025-04-02] VITALS: Ht 162.6 cm; Wt 68.3 kg
[~2025-04-02 13:00] MED LIST changes: +METR-265 PO
[2025-04-02] MEDS ORDERED: IBUP200C25 PO (13:09)
[2025-04-02 13:57] LABS: BASO # 0.1 10^3/uL (0.0-0.2); BASO % 0.6 % (0.0-1.0); EOS # 0.0 10^3/uL (0.0-0.5); EOS % 0.1 % (0.0-3.0); LYMPH # 1.1 10^3/uL (1.5-5.0); LYMPH % 13.4 % (24.0-44.0); MONO # 0.4 10^3/uL (0.0-0.8); MONO % 4.7 % (2.0-8.0); NEUTROPHILS # 6.6 10^3/uL (1.5-8.5); NEUTROPHILS % 80.7 % (36.0-66.0); PLATELET COUNT, AUTOMATED 187 10^3/uL (150-450)
[2025-04-02 14:00] LABS: KETONE, URINE AUTO RFX TRACE mg/dL (NEGATIVE); MUCUS, URINE RFX SMALL (NEGATIVE); NITRITE, URINE AUTO RFX NEGATIVE (NEGATIVE); RBC, URINE AUTO RFX 2 /HPF (0-3); SQUAM EPITHELIAL CELL UR AURFX 2 /HPF (0-6)
[2025-04-02 14:10] LABS: LEUKOCYTE ESTERASE UR AUTO RFX 3+ (NEGATIVE); WBC, URINE AUTO RFX 135 /HPF (0-3)
[2025-04-02] MEDS: ONDANSETRON 4MG 2ML VIAL IV ONE (14:23)
[2025-04-02] MEDS: NS (Normal Saline) 0.9% 1,000 ML IV ONE (14:23)
[2025-04-02] MEDS: KETOROLAC 30 MG/ML 1 ML VIAL IV ONE (14:25)
[2025-04-02 14:31] LABS: ALT/SGPT 32 U/L (7.0-40); AST/SGOT 39 U/L (<34); CALCIUM LEVEL 8.7 MG/DL (8.5-10.1); CARBON DIOXIDE LEVEL 28 MMOL/L (20-31); CHLORIDE LEVEL 102 MMOL/L (98-107); CREATININE FOR GFR 0.66 MG/DL (0.55-1.30); GLOMERULAR FILTRATION RATE > 90.0 (>60); POTASSIUM SERUM 3.1 MMOL/L (3.5-5.1); SODIUM LEVEL 141 MMOL/L (136-145)
[2025-04-02 14:53] LABS: HCG, SERUM QUALITATIVE NEGATIVE (NEGATIVE)
[2025-04-02] MEDS ORDERED: CEFD1CAP9 PO (16:31)
[2025-04-02 16:32] VITALS: BP 160/84; TEMP 98.1; O2SAT 98
[2025-04-02] MEDS: cefTRIAXone SOD 1 GM in DEXTROSE 5% (D5W) ADV/MINI-BAG 50 ML IV ONE (16:37)
[2025-04-02] MEDS: POTASSIUM CHLORIDE 10MEQ SR TABLET PO ONE (16:37)
== END 2025-04-02 17:07 | disposition home or self-care (01) ==
LOC: M ED 13:00
DX: N10 Acute pyelonephritis (principal); E87.6 Hypokalemia; F17.210 Nicotine dependence, cigarettes, uncomplicated; Z88.5 Allergy status to narcotic agent; Z79.1 Long term (current) use of non-steroidal anti-inflammatories (NSAID); Z79.2 Long term (current) use of antibiotics
CPT/HCPCS: 36415; 74176; 80048; 80076; 81001; 83690; 84703; 85025; 87088; 87186; 96361; 96365; 96375; 99284; J0696; J1885; J2405